=== PATIENT | female | born 1985 | race Caucasian/White ===

== ENCOUNTER 2017-09-02 10:22 | Observation (INO) | payer OTHER ==
[2017-09-02 15:21] VITALS: BP 125/77; PULSE 100
== END 2017-09-02 14:50 | disposition home or self-care (01) ==
LOC: OB 10:22
PROVIDERS: ADMIT Family Medicine; ATTEND Family Medicine
DX: Z34.83 Encounter for supervision of other normal pregnancy, third trimester (principal)
CPT/HCPCS: G0378

== ENCOUNTER 2017-09-18 04:52 | Inpatient (IN) | payer OTHER ==
[~2017-09-18 04:52] MED LIST: Ambien 10 MG PO PRN; Anucort-HC SUPPOSITORY PR PRN; BENADRYL 50 MG/ML IV PRN; BICITRA 30 ML CUP PO SCH; CLARITIN 10 MG PO PRN; CORTISONE 1% CREAM TP PRN; Dulcolax 10 MG SUPP PR PRN; HOLD NARCOTIC ANALGESICS AND SEDATIVES X24 HR MC PRN; LANSINOH 40 GM TOP PRN; Lactated Ringers 1,000 ML IV ONE; Mylicon 80MG PO PRN; Pepcid 20 MG VIAL IV SCH; Reglan 10 MG/2 ML IV SCH; Restoril 15 MG PO PRN; TUCKS TP PRN; TYLENOL EXTRA STRENGTH 500 MG PO PRN
[2017-09-18] MEDS ORDERED: Lactated Ringers 1,000 ML IV SCH (05:00)
[2017-09-18] MEDS ORDERED: CEFAZOLIN 2 GM-D5W BAG** 2 GM/50 ML ML IV SCH (05:00)
[2017-09-18 05:29] LABS: Hematocrit 35.9 % (35-47); Hemoglobin 12.3 gm/dl (12.0-16.0); Mean Cell Volume 92.8 fl (78-100); Mean Corpuscular Hgb Concent. 34.3 g/dl (32-36); Mean Platelet Volume 9.8 fl (6-9.5); Platelet Count 277 K/mm3 (150-450); Red Blood Count 3.87 M/mm3 (4.1-5.4); Red Cell Distribution Width 12.9 % (11.5-14.0); White Blood Count 12.2 K/mm3 (4.0-10.5)
[2017-09-18 05:41] LABS: INR 0.91 (0.8-3.0)
[2017-09-18 05:43] LABS: PTT 27.4 SECONDS (25.3-37.0)
[2017-09-18 05:45] LABS: Mean Corpuscular Hemoglobin 31.7 pg (26-32)
[2017-09-18 05:46] LABS: Amphetamine,Urine NEGATIVE (NEGATIVE); Barbiturate,Urine NEGATIVE (NEGATIVE); Benzodiazepine,Urine NEGATIVE (NEGATIVE); Cocaine,Urine NEGATIVE (NEGATIVE); Methadone,Urine NEGATIVE (NEGATIVE); Opiate,Urine NEGATIVE (NEGATIVE); PCP,Urine NEGATIVE (NEGATIVE); THC,Urine NEGATIVE (NEGATIVE)
[2017-09-18 06:15] LABS: ABO TYPING O; Antibody Screen NEGATIVE (NEGATIVE); RH TYPING POSITIVE
[2017-09-18] MEDS ORDERED: Nubain 10 MG/ML IV PRN (08:00)
[2017-09-18] MEDS ORDERED: DEMEROL 50 MG IV PRN (08:00)
[2017-09-18] MEDS ORDERED: Zofran 4 MG/2 ML VIAL IV PRN (08:00)
[2017-09-18] MEDS ORDERED: MORPHINE SULFATE 2 MG INJ IV PRN (08:00)
[2017-09-18] MEDS ORDERED: Narcan 0.4 MG/ML IV PRN (08:00)
[2017-09-18] MEDS ORDERED: PERCOCET TABLET 5/325MG PO PRN (08:00)
[2017-09-18] MEDS ORDERED: Adacel Vial IM ONE (09:00)
[2017-09-18 09:48] LABS: Appearance HAZY (CLEAR); Leukocyte Esterase TRACE (NEGATIVE); Nitrite NEGATIVE (NEGATIVE)
[2017-09-18 09:49] LABS: Appearance CLEAR (CLEAR); Bilirubin NEGATIVE (NEGATIVE); Blood NEGATIVE Ery/ul (0-5); Glucose NEGATIVE (NEGATIVE); Ketones NEGATIVE (NEGATIVE); Leukocyte Esterase NEGATIVE (NEGATIVE); Nitrite NEGATIVE (NEGATIVE); Protein,Urine Dip NEGATIVE (Negative); Urobilinogen NORMAL mg/dL (0-1)
[2017-09-18 09:49] LABS: Bacteria MODERATE /HPF (NEGATIVE); Bilirubin NEGATIVE (NEGATIVE); Blood 250 Ery/ul (0-5); Epithelial Cells MODERATE /HPF (FEW); Glucose NEGATIVE (NEGATIVE); Ketones NEGATIVE (NEGATIVE); Protein,Urine Dip 300 (Negative); RBC 50-100 /HPF (0-2); Urobilinogen NORMAL mg/dL (0-1)
[2017-09-18] MEDS ORDERED: TORAdol 30 mg Injection IV ONE (10:09)
[2017-09-18] MEDS ORDERED: Decadron 4 MG INJ IV ONE (10:09)
[2017-09-18] MEDS ORDERED: Naropin 0.5% 30 ML VIAL IJ ONE (10:09)
[2017-09-18] MEDS ORDERED: Pitocin 10 UNITS/ML IV ONE (10:09)
[2017-09-18] MEDS ORDERED: Zofran 4 MG/2 ML VIAL IV ONE (10:09)
[2017-09-18] MEDS: Dextrose 5%-Lr IV Solution 1000 ML 1,000 ML IV SCH ×2 (12:08→20:19)
--- NOTE | 2017-09-18 15:41 | OP ---
SURGERY DATE/TIME: 09/18/2017 0741 PREOPERATIVE DIAGNOSES: 1) Term intrauterine with history of prior section. 2) Desires permanent sterilization. POSTOPERATIVE DIAGNOSES: 1) Term intrauterine with history of prior section. 2) Desires permanent sterilization. PROCEDURES: 1) Repeat low transverse section. 2) Bilateral tubal ligation. SURGEON: Milton Snyder M.D. ESTIMATED BLOOD LOSS: 400 cc. IV FLUIDS: 1600 cc of crystalloid. URINE OUTPUT: 400 cc of clear straw-colored urine. ANESTHESIA: Spinal by Joao Freitas CRNA. SPECIMENS: Bilateral fallopian tube segments. DESCRIPTION OF PROCEDURE: After informed written consent was obtained, the patient was taken to the operating room. She was prepped and draped in the usual sterile fashion after she underwent spinal anesthesia. After adequate level of anesthesia was assessed and a low transverse skin incision was made by knife and carried through the subcutaneous fat to the level of the fascia. The fascia was nicked on both sides of the midline and extended in horizontal fashion using curved Delgadillo scissors. The superior free edge of the fascia was then grasped with Gisele clamps and the underlying rectus muscles were dissected free. The same was repeated inferiorly. The peritoneal cavity was then opened and bladder flap was created and reflected over the lower uterine segment. A horizontal uterine incision was made by knife and carried down to the level of amniotic membranes which were artificially ruptured. A viable female infant was delivered from the vertex presentation with a strong cry immediately upon delivery. Cord was clamped and cut and she was handed off to the awaiting nursery team. The placenta was removed from the uterine cavity and the uterus was exteriorized. The uterine cavity was sponge curetted clean with lap sponge. The uterine incision was closed with #1 chromic in a running locked fashion. Good closure and good hemostasis were achieved. Next, the left fallopian tube was identified and grasped with [place]. Cautery was used to make a window in the mesoappendix and proximal and distal tube segments were ligated with chromic tie. The interceding tube segment was dissected free with Metzenbaum scissors and the free edge of the tube was then cauterized with electrocautery. The same was repeated on the right side. Both tube segments were sent for pathology specimen. The posterior cul-de-sac was wiped free of blood and clot and the uterus was returned to peritoneal cavity. Lateral gutters were wiped free of blood and clot. Again, the uterine incision was inspected and noted to be hemostatic. Next, the fascia was closed with 0 Vicryl in a running fashion. Good closure and good hemostasis were achieved. Irrigation was used in the subcutaneous fat and any areas of bleeding were cauterized with electrocautery. The skin layer was closed with 4-0 undyed Vicryl in a running subcuticular fashion. Good closure and good hemostasis were achieved. Steri-Strips and occlusive dressing were placed over the incision. The patient transferred to the recovery room in excellent condition.
[2017-09-18] MEDS: Colace 100 MG PO SCH (23:32)
[2017-09-18] MEDS: MOTRIN 400 MG PO PRN (23:32)
[2017-09-19 05:52] LABS: Hematocrit 32.8 % (35-47); Hemoglobin 11.1 gm/dl (12.0-16.0); Mean Cell Volume 93.7 fl (78-100); Mean Corpuscular Hemoglobin 31.7 pg (26-32); Mean Corpuscular Hgb Concent. 33.8 g/dl (32-36); Mean Platelet Volume 10.3 fl (6-9.5); Platelet Count 294 K/mm3 (150-450); Red Cell Distribution Width 12.8 % (11.5-14.0); White Blood Count 18.1 K/mm3 (4.0-10.5)
[2017-09-19] MEDS ORDERED: Phenergan 25 MG INJ IM PRN (08:00)
[2017-09-19] MEDS ORDERED: DEMEROL 75 MG IM PRN (08:00)
[2017-09-19] MEDS: Colace 100 MG PO SCH ×3 (10:06→21:27)
[2017-09-19] MEDS: FERREX 150 PO SCH ×2 (10:06→21:25)
[2017-09-19] MEDS: NORCO 5/325 MG PO PRN ×3 (10:21→23:17)
[2017-09-19] MEDS: MOTRIN 400 MG PO PRN ×2 (10:22→18:02)
[2017-09-19 10:47] VITALS: O2SAT 98
[2017-09-20] MEDS: MOTRIN 400 MG PO PRN (02:44)
[2017-09-20] MEDS: NORCO 5/325 MG PO PRN (07:52)
--- NOTE | 2017-09-20 08:09 | PCM.DS ---
Discharge Summary Date of Admission: 09/18/17 04:52 Admitting Physician: NAZIA DOMINGUEZ Consults: Consults on Case 09/18/17 04:40 Notify Anesthesia Provider ROUTINE Notify Physician OF ADMISSION Primary Care Provider: NAZIA DOMINGUEZ Allergies Allergies No Known Drug Allergies Allergy (Verified 09/18/17 05:19) Hospital Summary - Hospital Course Hospital Course: had repeat c/s at 39 wks with BTL, unremarkable post-op course. no complications. pain well controlled, mild lochia. daughter and well bonded. - Vitals & Intake/Output Vital Signs: Vital Signs Temperature 98.0 F 09/20/17 04:10 Pulse Rate 78 09/20/17 04:10 Respiratory Rate 18 09/20/17 04:10 Blood Pressure 118/65 09/20/17 04:10 O2 Sat by Pulse Oximetry 98 09/19/17 10:00 Intake & Output: Intake & Output 09/17/17 09/18/17 09/19/17 09/20/17 11:59 11:59 11:59 11:59 Intake Total 1481 540 Output Total 2600 Balance -1119 540 Weight 89.358 kg - Lab Result Diagrams: 09/19/17 05:00 Micro Results-Entire Visit: Microbiology 09/18/17 07:58 Urine Culture - Final Urine, Catheterized NO GROWTH Discharge Exam General Appearance: no apparent distress, alert Skin Exam: normal color, warm, dry Respiratory Exam: normal breath sounds, lungs clear, No respiratory distress Cardiovascular Exam: regular rate/rhythm, normal heart sounds Gastrointestinal/Abdomen Exam: soft, other (incision c/d/i), No tenderness, No mass Extremity Exam: normal inspection, normal range of motion Final Diagnosis/Problem List - Final Discharge Diagnosis/Problem (1) delivery delivered Current Visit: Yes Status: Acute (2) Tubal ligation status Current Visit: Yes Status: Acute - Discharge Disposition: Home, Self-Care Condition: Stable Prescriptions: New Hydrocodone Bit/Acetaminophen [[place] 5-325 Tablet] 1 each PO Q6H PRN PRN #28 tablet MDD 4 PRN Reason: Pain Continue Vits W-Ca,Fe,FA(<1Mg) [] 1 each PO DAILY Follow up with: NAZIA DOMINGUEZ [Primary Care Provider] - 1 Week
[2017-09-20] MEDS ORDERED: Astramorph-Pf 5 MG/10 ML IV ONE (08:45)
[2017-09-20 09:37] VITALS: BP 129/68; PULSE 88
== END 2017-09-20 10:10 | disposition home or self-care (01) | DRG 766 ==
LOC: OB 04:52
PROVIDERS: ADMIT Family Medicine; ATTEND Family Medicine
PROC: 0UL70ZZ Occlusion of Bilateral Fallopian Tubes, Open Approach (ICD-10-PCS; principal; 2017-09-18)
PROC: 10D00Z1 Extraction of Products of Conception, Low, Open Approach (ICD-10-PCS; 2017-09-18)
DX: O34.211 Maternal care for low transverse scar from previous cesarean delivery (principal); Z37.0 Single live birth; Z3A.39 39 weeks gestation of pregnancy; Z30.2 Encounter for sterilization
CPT/HCPCS: 36000; 36415; 64488; 76937; 76942; 80307; 81000; 81002; 85027; 85610; 85730; 86850; 86900; 86901; 87086; 88302; 90715; 94799; 96372; J0690; J1100; J1885; J2274; J2405; J2590; J2795; A9270-GY

== ENCOUNTER 2019-04-22 20:32 | Emergency (ER) | payer OTHER ==
[2019-04-22] MEDS ORDERED: TORAdol 30 mg Injection IM ONE (21:07)
[2019-04-22] MEDS ORDERED: TORAdol 30 mg Injection ONE (21:10)
--- NOTE | 2019-04-22 21:10 | ERPHSYRPT ---
- History of Present Illness Time Seen by Provider: 04/22/19 20:50 Source: patient Exam Limitations: no limitations Patient Subjective Stated Complaint: Right ear / throat Triage Nursing Assessment: Alert and oriented X 3. States 3 or 4 days ago started having pain on right side of throat, worse when swallowing. Also complains of pain to right ear and headache for same amount of days. Physician History: Patient over the past three days has been having intermittent pain in the right ear radiating down her jaw. Patient has not had any recent trauma to her face, recent swimming, recent air travel or recent dental work. Patient has not been evaluated prior to coming into the emergency department. Timing/Duration: abrupt onset, days (3) Severity: severe ENT Location: ear (R), throat Prearrival Treatment: no prearrival treatment Modifying Factors: Worsens With: other (opening her mouth) Associated Symptoms: ear pain (R), jaw pain, sore throat, No denies symptoms, No ear pain (L), No cough, No fever, No chills, No change in hearing, No drooling, No ear drainage, No facial pain/swelling, No headache, No hearing loss , No malaise, No motion sickness, No nasal congestion/drainage, No epistaxis, No nasal foreign body, No neck pain, No poor fluid intake, No poor solids intake , No ringing of ears, No swollen glands, No sinus infection, No tooth pain, No difficulty swallowing, No voice change Allergies/Adverse Reactions: No Known Drug Allergies Allergy (Verified 04/22/19 20:50) Hx Tetanus, Diphtheria Vaccination/Date Given: Yes Hx Influenza Vaccination/Date Given: No Hx Pneumococcal Vaccination/Date Given: No Immunizations Up to Date: Yes - Review of Systems Constitutional: No Fever, No Chills Eyes: No Eye Pain, No Vision Changes Ears, Nose, & Throat: Ear Pain, Throat Pain, No Ear Discharge, No Tinnitus, No Nose Congestion, No Mouth Pain, No Mouth Swelling, No Throat Swelling, No Hoarse , No Painful Swallowing Respiratory: No Cough, No Dyspnea Cardiac: No Chest Pain, No Edema, No Syncope Abdominal/Gastrointestinal: No Abdominal Pain, No Nausea, No Vomiting, No Diarrhea Genitourinary Symptoms: No Dysuria, No Hematuria, No Flank Pain Musculoskeletal: No Back Pain, No Neck Pain Skin: No Rash Neurological: No Dizziness, No Focal Weakness, No Headache, No Parasthesia, No Sensory Changes Psychological: No Symptoms Endocrine: No Excessive Sweating Hematologic/Lymphatic: No Easy Bleeding, No Easy Bruising All Other Systems: Reviewed and Negative - Past Medical History Pertinent Past Medical History: Yes Neurological History: Migraines ENT History: No Pertinent History Cardiac History: No Pertinent History Respiratory History: No Pertinent History Endocrine Medical History: No Pertinent History Musculoskeletal History: Fractures GI Medical History: No Pertinent History History: No Pertinent History Psycho-Social History: No Pertinent History Female Reproductive Disorders: No Pertinent History Other Medical History: Cardiac Work Up due to Family History of Heart Problem. Fracture left ankle, fx tailbone - Past Surgical History Past Surgical History: Yes Neuro Surgical History: No Pertinent History Cardiac: No Pertinent History Respiratory: No Pertinent History Gastrointestinal: No Pertinent History Genitourinary: No Pertinent History Musculoskeletal: No Pertinent History Female Surgical History: Section - Social History Smoking Status: Current every day smoker How long have you smoked: 20 Exposure to second hand smoke: No Drug Use: none Patient Lives Alone: No - Female History Hx Last Menstrual Period: 1 week ago Hx Now: No - Nursing Vital Signs Nursing Vital Signs: Initial Vital Signs Temperature 98.2 F 04/22/19 20:38 Pulse Rate 79 04/22/19 20:38 Respiratory Rate 20 04/22/19 20:38 Blood Pressure 106/81 04/22/19 20:38 O2 Sat by Pulse Oximetry 99 04/22/19 20:38 Pain Scale Pain Intensity 4 - Physical Exam General Appearance: no apparent distress, alert Eye Exam: bilateral eye: normal inspection, PERRL, EOMI Ear Exam: bilateral ear: auricle normal, canal normal, TM normal, other (mild bilateral TMJ Subluxation) Nasal Exam: normal inspection Throat Exam: normal, pharynx normal, moist mucus membranes, No dental tenderness , No excessive drooling, No foreign body, No maxillary swelling, No pharynx swelling, No tonsillar exudate Neck Exam: normal inspection, non-tender, supple, trachea midline, No lymphadenopathy (R), No lymphadenopathy (L), No stiff neck Cardiovascular/Respiratory Exam: normal breath sounds, regular rate/rhythm, heart sounds normal, no JVD, no M/R/G, no respiratory distress Abdominal Exam: non-tender, soft Neurologic Exam: alert, oriented x 3, nursery rn II-XII nml as tested, normal mood/ affect, sensation nml, No motor deficits Skin Exam: normal color, warm, dry, No petechiae, No jaundice, No abrasion, No cyanosis, No laceration SpO2 Interpretation: normal SpO2: 99 O2 Delivery: Room Air - Course Nursing assessment & vital signs reviewed: Yes Ordered Tests: Medication Summary Discontinued Medications Generic Name Dose Route Start Last Admin Trade Name Freq PRN Reason Stop Dose Admin Ketorolac Tromethamine 60 mg 04/22/19 21:07 04/22/19 21:12 Toradol 30 Mg Injection IM 04/22/19 21:08 60 mg STAT ONE Administration Ketorolac Tromethamine Confirm 04/22/19 21:10 Toradol 30 Mg Injection Administered 04/22/19 21:11 Dose 60 mg .ROUTE .STK-MED ONE Lab/Rad Data: Laboratory Results 04/22/19 Range/Units 21:26 Group A Strep Antibody NEGATIVE (NEGATIVE) - Progress Progress: improved Progress Note: 04/22/19 22:03 Patient's pain has significantly improved after IM Toradol. Patient's symptoms are due to referred pain from the right TMJ. Patient's integument, ear, throat and nasal and sinus examinations were negative for any abnormalities that could be causing her symptoms. Patient is to followup with her dentist to continue evaluation of her symptoms, confirm diagnosis and discuss further treatment options such a bite block to wear at night. Counseled pt/family regarding: lab results, diagnosis, need for follow-up - Departure Departure Disposition: Home Clinical Impression: TMJ syndrome, Elevated blood pressure reading without diagnosis of hypertension Condition: Good Critical Care Time: No Referrals: NAZIA DOMINGUEZ [Primary Care Provider] - 04/24/19 Instructions: Temporomandibular Joint (TMJ) Disorders (DC) Additional Instructions: Discuss with your doctor or dentist about if your symptoms are coming from your TMJ and discuss treatment options. Return back to the emergency department if any worse pain, new fever, new rash, new headache or any other concerning signs or symptoms that were not present at today's emergency department visit for immediate reevaluation in the emergency department. Prescriptions: Etodolac 400 mg [Lodine 400 mg] 400 mg PO BID PRN PRN #20 tablet PRN Reason: Pain
[2019-04-22 22:17] VITALS: BP 110/77; PULSE 80; O2SAT 96
== END 2019-04-22 22:17 | disposition home or self-care (01) ==
LOC: ED 20:32
DX: M26.601 Right temporomandibular joint disorder, unspecified (principal); R03.0 Elevated blood-pressure reading, without diagnosis of hypertension; H92.01 Otalgia, right ear
CPT/HCPCS: 87651; 96372; 99284; J1885

== ENCOUNTER 2019-11-03 19:28 | Emergency (ER) | payer OTHER ==
[2019-11-03] MEDS ORDERED: Sodium Chloride 0.9% 1000 ML 1,000 ML ONE (19:40)
[2019-11-03] MEDS: Sodium Chloride 0.9% 1000 ML 1,000 ML IV STA (19:43)
[2019-11-03 20:11] LABS: Absolute Neutrophil Ct (ANC) 10.81 (1.4-6.9); BASOPHIL % 0.1 % (0.0-0.4); Basophil (Absolute #) 0.02 (0-0.4); Eosinophil (Absolute #) 0.15 (0-0.5); Hematocrit 39.3 % (35-47); Hemoglobin 12.9 gm/dl (12.0-16.0); Lymphocyte (Absolute #) 3.15 (1.0-4.6); Lymphocytes % 20.3 % (24.0-44.0); Mean Corpuscular Hemoglobin 30.9 pg (26-32); Mean Corpuscular Hgb Concent. 32.8 g/dl (32-36); Mean Platelet Volume 9.7 fl (7.5-11.0); Neutrophil % 69.6 % (36.0-66.0); Platelet Count 271 K/mm3 (150-450); Red Blood Count 4.18 M/mm3 (4.1-5.4); White Blood Count 15.5 K/mm3 (4.0-10.5)
[2019-11-03 20:16] LABS: ALBUMIN 4.2 g/dL (3.5-5.0); ALKALINE PHOSPHATASE 67 U/L (38-126); ANION GAP 9.3 MEQ/L (5-15); BLOOD UREA NITROGEN 9 mg/dL (7-17); CHLORIDE 107 mmol/L (98-107); Calcium 9.2 mg/dL (8.4-10.2); Carbon Dioxide 28 mmol/L (22-30); Creatinine 1 0.81 mg/dL (0.52-1.04); Glucose 99 mg/dL (74-106); MAGNESIUM 1.9 mg/dL (1.6-2.3); Potassium 3.8 mmol/L (3.5-5.1); SGOT/AST 25 U/L (14-36); SGPT/ALT 17 U/L (0-35); SODIUM 140 mmol/L (137-145); Total Protein 7.3 g/dL (6.3-8.2)
[2019-11-03 20:50] LABS: Appearance SLIGHTLY CLOUDY (CLEAR); Bilirubin NEGATIVE (NEGATIVE); Blood NEGATIVE Ery/ul (0-5); Epithelial Cells RARE /HPF (FEW); Glucose NEGATIVE (NEGATIVE); Ketones NEGATIVE (NEGATIVE); Leukocyte Esterase NEGATIVE (NEGATIVE); Mucus SLIGHT /HPF (NEGATIVE); Nitrite NEGATIVE (NEGATIVE); Protein,Urine Dip NEGATIVE (Negative); Specific Gravity 1.009 (1.005-1.025); Urobilinogen NEGATIVE mg/dL (0-1)
[2019-11-03] MEDS ORDERED: TORAdol 30 mg Injection ONE (20:52)
[2019-11-03] MEDS: TORAdol 30 mg Injection IV ONE (20:54)
--- NOTE | 2019-11-03 21:15 | ERPHSYRPT ---
- History of Present Illness Time Seen by Provider: 11/03/19 19:35 Source: patient, EMS Exam Limitations: no limitations Patient Subjective Stated Complaint: per ems pt passed out at home in the bathroom. pt states she wasnt feeling well and and went into the bathroom. sta saranya she felt like she was going to pass out so she laid down on the floor. told ems that she had seizure like acitivity. pt was awake, alert and and oriented when ems arrived to home. Triage Nursing Assessment: pt alert and oriented, answers questions approp. pt tearful at times and anxious. pt arrive per ambulance and tranfers to stretcher per self.respirations nonlabored with lungs cta. abd soft and nontender. skin pink warm and dry. pupils equal and reactive. bilat upper and lower ext strength equal and wnl. Physician History: 34 years old female with history of migraine with aura, tooth extraction done today is brought in the ER with chief complaint of syncopal episode. Patient reports she was hurting really bad, went to the bathroom and feel dizzy/lightheaded, as if she was going to pass out. She probably will lay down on the floor and woke up with her standing on the side who told that she probably have a seizure-like activity. She did not bite her tongue, no loss of bowel or bladder control. Denies any history of seizures before. She was not confused upon waking up. She denies any focal numbness tingling or weakness. Denies any headache. Patient reports having similar symptoms in the past with migraines. She denies any visual symptoms marked difficulty speech. Denies any chest pain palpitations or shortness of breath before or after the episode. Denies any fever or chills. Timing/Duration: today, resolved prior to arrival, sudden, improved Severity: moderate Modifying Factors: Improves With: nothing Associated Symptoms: denies symptoms, syncope Allergies/Adverse Reactions: No Known Drug Allergies Allergy (Verified 11/03/19 19:53) Hx Tetanus, Diphtheria Vaccination/Date Given: Yes Hx Influenza Vaccination/Date Given: No Hx Pneumococcal Vaccination/Date Given: No Immunizations Up to Date: Yes Travel Risk - International Travel Have you traveled outside of the country in past 3 weeks: No - Coronavirus Screening Close contact with a COVID-19 positive Pt in past 14-21 Days: No - Review of Systems Constitutional: Weakness Eyes: No Symptoms Ears, Nose, & Throat: Mouth Swelling Respiratory: No Symptoms Cardiac: No Symptoms Abdominal/Gastrointestinal: No Symptoms Genitourinary Symptoms: No Symptoms Musculoskeletal: No Symptoms Skin: No Symptoms Psychological: No Symptoms Endocrine: No Symptoms Hematologic/Lymphatic: No Symptoms Immunological/Allergic: No Symptoms - Past Medical History Pertinent Past Medical History: Yes Neurological History: Migraines ENT History: No Pertinent History Cardiac History: No Pertinent History Respiratory History: No Pertinent History Endocrine Medical History: No Pertinent History Musculoskeletal History: Fractures GI Medical History: No Pertinent History History: No Pertinent History Psycho-Social History: No Pertinent History Female Reproductive Disorders: No Pertinent History Other Medical History: Cardiac Work Up due to Family History of Heart Problem. Fracture left ankle, fx tailbone. hx of syncope with workup done- possible aura before migraine - Past Surgical History Past Surgical History: Yes Neuro Surgical History: No Pertinent History Cardiac: No Pertinent History Respiratory: No Pertinent History Gastrointestinal: No Pertinent History Genitourinary: No Pertinent History Musculoskeletal: No Pertinent History Female Surgical History: Section - Social History Smoking Status: Current every day smoker How long have you smoked: 20 Exposure to second hand smoke: No Drug Use: none Patient Lives Alone: No - Female History Hx Now: (unkn) - Nursing Vital Signs Nursing Vital Signs: Initial Vital Signs Temperature 98.1 F 11/03/19 19:31 Pulse Rate 81 11/03/19 19:31 Respiratory Rate 20 11/03/19 19:31 Blood Pressure 157/100 11/03/19 19:31 O2 Sat by Pulse Oximetry 99 11/03/19 19:31 Pain Scale Pain Intensity 5 - Physical Exam General Appearance: no apparent distress, alert, anxiety Eye Exam: PERRL/EOMI, eyes nml inspection Ears, Nose, Throat Exam: normal ENT inspection, TMs normal, pharynx normal Neck Exam: normal inspection, non-tender, supple, full range of motion Respiratory Exam: normal breath sounds, lungs clear Cardiovascular Exam: regular rate/rhythm, normal heart sounds Gastrointestinal/Abdomen Exam: soft, normal bowel sounds, No tenderness Back Exam: normal inspection, normal range of motion Extremity Exam: normal inspection, normal range of motion, pelvis stable Neurologic Exam: alert, oriented x 3, cooperative, printing roller polisher II-XII nml as tested, normal mood/affect, nml cerebellar function, nml station & gait, sensation nml Skin Exam: normal color, warm SpO2 Interpretation: normal SpO2: 98 O2 Delivery: Room Air - Course EKG Interpreted by Me: RATE ([id number]), Sinus Rhythm, NORMAL AXIS, NORMAL INTERVALS, NORMAL QRS Ordered Tests: Active Orders 24 hr Category Date Time Status Window Glazier STAT Care 11/03/19 19:33 Active EKG-ER Only STAT Care 11/03/19 19:32 Active IV Insertion STAT Care 11/03/19 19:32 Active Orthostatic Vital Signs STAT Care 11/03/19 19:32 Active CHEST 1 VIEW (PORTABLE) Stat Exams 11/03/19 21:09 Taken HEAD WITHOUT CONTRAST [CT] Stat Exams 11/03/19 19:33 Taken CBC W DIFF Stat Lab 11/03/19 20:00 Completed CMP Stat Lab 11/03/19 20:00 Completed HCG,QUALITATIVE URINE Stat Lab 11/03/19 20:45 Completed MAGNESIUM Stat Lab 11/03/19 20:00 Completed TROPONIN Q3H Lab 11/03/19 20:00 Completed TROPONIN Q3H Lab 11/03/19 22:45 Ordered TROPONIN Q3H Lab 11/04/19 01:45 Ordered TROPONIN Q3H Lab 11/04/19 04:45 Ordered TROPONIN Q3H Lab 11/04/19 07:45 Ordered UA W/RFX UR CULTURE Stat Lab 11/03/19 20:45 Completed Medication Summary Discontinued Medications Generic Name Dose Route Start Last Admin Trade Name Freq PRN Reason Stop Dose Admin Sodium Chloride 1,000 mls @ 999 mls/hr 11/03/19 19:32 11/03/19 21:23 Sodium Chloride 0.9% 1000 Ml IV 11/03/19 20:32 Infused .Q1H1M STA Infusion Sodium Chloride Confirm 11/03/19 19:40 Sodium Chloride 0.9% 1000 Ml Administered 11/03/19 19:41 Dose 1,000 mls @ ud .ROUTE .STK-MED ONE Levetiracetam 1,000 mg/ 110 mls @ 220 mls/hr 11/03/19 21:33 11/03/19 21:42 Dextrose IV 11/03/19 22:02 220 mls/hr STAT ONE Administration Dextrose Confirm 11/03/19 21:38 D5w 100ml Mini Bag 100 Ml Administered 11/03/19 21:39 Dose 100 mls @ ud IV .STK-MED ONE Ketorolac Tromethamine 30 mg 11/03/19 20:41 11/03/19 20:54 Toradol 30 Mg Injection IV 11/03/19 20:42 30 mg STAT ONE Administration Ketorolac Tromethamine Confirm 11/03/19 20:52 Toradol 30 Mg Injection Administered 11/03/19 20:53 Dose 30 mg .ROUTE .[facility] ONE Levetiracetam Confirm 11/03/19 21:37 Keppra 500 Mg/5 Ml Administered 11/03/19 21:38 Dose 500 mg .ROUTE .[facility] ONE Lab/Rad Data: Laboratory Result Diagrams 11/03/19 20:00 11/03/19 20:00 Laboratory Results 11/03/19 11/03/19 11/03/19 Range/Units 20:45 20:45 20:00 WBC (4.0-10.5) K/mm3 RBC (4.1-5.4) M/mm3 Hgb (12.0-16.0) gm/dl Hct (35-47) % MCV (78-100) fl MCH (26-32) pg MCHC (32-36) g/dl RDW (11.5-14.0) % Plt Count (150-450) K/mm3 MPV (7.5-11.0) fl Gran % (36.0-66.0) % Eos # (Auto) (0-0.5) Absolute Lymphs (auto) (1.0-4.6) Absolute Monos (auto) (0.0-1.3) Lymphocytes % (24.0-44.0) % Monocytes % (0.0-12.0) % Eosinophils % (0.00-5.0) % Basophils % (0.0-0.4) % Absolute Granulocytes (1.4-6.9) Basophils # (0-0.4) Sodium (137-145) mmol/L Potassium (3.5-5.1) mmol/L Chloride (98-107) mmol/L Carbon Dioxide (22-30) mmol/L Anion Gap (5-15) MEQ/L BUN (7-17) mg/dL Creatinine (0.52-1.04) mg/dL Estimated GFR ML/MIN Glucose (74-106) mg/dL Calcium (8.4-10.2) mg/dL Magnesium (1.6-2.3) mg/dL Total Bilirubin (0.2-1.3) mg/dL AST (14-36) U/L ALT (0-35) U/L Alkaline Phosphatase (38-126) U/L Troponin I < 0.012 (0.000-0.034) ng/mL Serum Total Protein (6.3-8.2) g/dL Albumin (3.5-5.0) g/dL Urine Color YELLOW (YELLOW) Urine Appearance SLIGHTLY CLOUDY (CLEAR) Urine pH 5.0 (5-6) Ur Specific [place] 1.009 (1.005-1.025) Urine Protein NEGATIVE (Negative) Urine Ketones NEGATIVE (NEGATIVE) Urine Blood NEGATIVE (0-5) Rahul/ul Urine Nitrite NEGATIVE (NEGATIVE) Urine Bilirubin NEGATIVE (NEGATIVE) Urine Urobilinogen NEGATIVE (0-1) mg/dL Ur Leukocyte Esterase NEGATIVE (NEGATIVE) Urine WBC (Auto) 3-5 (0-5) /HPF Urine RBC (Auto) NONE (0-2) /HPF U Epithel Cells (Auto) RARE (FEW) /HPF Urine Bacteria (Auto) NONE (NEGATIVE) /HPF Urine Mucus (Auto) SLIGHT (NEGATIVE) /HPF Urine Culture Reflexed NO (NO) Urine Glucose NEGATIVE (NEGATIVE) mg/dL Urine HCG, Qual NEGATIVE (Negative) 11/03/19 11/03/19 Range/Units 20:00 20:00 WBC 15.5 H (4.0-10.5) K/mm3 RBC 4.18 (4.1-5.4) M/mm3 Hgb 12.9 (12.0-16.0) gm/dl Hct 39.3 (35-47) % MCV 94.0 (78-100) fl MCH 30.9 (26-32) pg MCHC 32.8 (32-36) g/dl RDW 13.0 (11.5-14.0) % Plt Count 271 (150-450) K/mm3 MPV 9.7 (7.5-11.0) fl Gran % 69.6 H (36.0-66.0) % Eos # (Auto) 0.15 (0-0.5) Absolute Lymphs (auto) 3.15 (1.0-4.6) Absolute Monos (auto) 1.40 H (0.0-1.3) Lymphocytes % 20.3 L (24.0-44.0) % Monocytes % 9.0 (0.0-12.0) % Eosinophils % 1.0 (0.00-5.0) % Basophils % 0.1 (0.0-0.4) % Absolute Granulocytes 10.81 H (1.4-6.9) Basophils # 0.02 (0-0.4) Sodium 140 (137-145) mmol/L Potassium 3.8 (3.5-5.1) mmol/L Chloride 107 (98-107) mmol/L Carbon Dioxide 28 (22-30) mmol/L Anion Gap 9.3 (5-15) MEQ/L BUN 9 (7-17) mg/dL Creatinine 0.81 (0.52-1.04) mg/dL Estimated GFR > 60.0 ML/MIN Glucose 99 (74-106) mg/dL Calcium 9.2 (8.4-10.2) mg/dL Magnesium 1.9 (1.6-2.3) mg/dL Total Bilirubin 0.60 (0.2-1.3) mg/dL AST 25 (14-36) U/L ALT 17 (0-35) U/L Alkaline Phosphatase 67 (38-126) U/L Troponin I (0.000-0.034) ng/mL Serum Total Protein 7.3 (6.3-8.2) g/dL Albumin 4.2 (3.5-5.0) g/dL Urine Color (YELLOW) Urine Appearance (CLEAR) Urine pH (5-6) Ur Specific [place] (1.005-1.025) Urine Protein (Negative) Urine Ketones (NEGATIVE) Urine Blood (0-5) Rahul/ul Urine Nitrite (NEGATIVE) Urine Bilirubin (NEGATIVE) Urine Urobilinogen (0-1) mg/dL Ur Leukocyte Esterase (NEGATIVE) Urine WBC (Auto) (0-5) /HPF Urine RBC (Auto) (0-2) /HPF U Epithel Cells (Auto) (FEW) /HPF Urine Bacteria (Auto) (NEGATIVE) /HPF Urine Mucus (Auto) (NEGATIVE) /HPF Urine Culture Reflexed (NO) Urine Glucose (NEGATIVE) mg/dL Urine HCG, Qual (Negative) - Progress Progress: improved Progress Note: 11/03/19 22:15 34 years old is evaluated for syncopal episode. She has a nonfocal neuro exam. I have obtained CT head which is negative for any acute intracranial findings. She has leukocytosis but no obvious focus of infection. Work-up otherwise is grossly unremarkable. Later on showed up in the ER stating that patient was having shaking episode with foaming in the mouth pointing towards seizure- like activity. Although patient was oriented on image and waking up with no postictal phase. I have given her dose of Keppra. I have obtained [facility] tele neurology consult who recommended outpatient neurology follow-up as he does not seem convinced that patient was actually having a seizure episode. Did not recommended starting on antiepileptic. Recommending avoiding driving until has been evaluated by outpatient neurology and EEG done and cleared for driving. Patient neuro exam is nonfocal throughout stay in the ER. At this point I do not think patient needs any further work-up per needs to come in the hospital and is stable for discharge. Plan discussed with patient in detail who understand and agrees with it. Counseled pt/family regarding: lab results, diagnosis, need for follow-up, rad results - Departure Departure Disposition: Home Clinical Impression: Syncope and collapse Leukocytosis Qualifiers: Leukocytosis type: unspecified Qualified Code(s): D72.829 - Elevated white blood cell count, unspecified Condition: Stable Critical Care Time: No Referrals: NAZIA DOMINGUEZ [Primary Care Provider] - (1-2 days for re evaluation) FEDERICA ROBERTS [NON-STAFF PHY W/O PRIVILEGES] - (call tomorrow for appointment) Instructions: Seizures, Adult (DC), Syncope (Fainting) (DC) Additional Instructions: Do not drive until evaluated and cleared by neurology. Follow-up with primary care and neurology for further evaluation. Drink plenty of fluids. Return to ER for any worsening.
[2019-11-03] MEDS ORDERED: Keppra 500 MG/5 ML ONE (21:37)
[2019-11-03] MEDS ORDERED: D5w 100ML Mini Bag 100 ML 100 ML IV ONE (21:38)
[2019-11-03] MEDS: Keppra 500 MG/5 ML*** 1,000 MG in D5w 100ML Mini Bag 100 ML 100 ML IV ONE (21:42)
[2019-11-03 22:15] VITALS: O2SAT 98
[2019-11-03 22:22] VITALS: BP 137/93
[2019-11-03 22:26] VITALS: PULSE 79
--- NOTE | 2019-11-04 08:33 | XRAY ---
Indication: Syncope. Seizure. Comparison: None Portable chest demonstrates normal heart, lungs, and bony thorax with a few incidental calcified granulomas.
--- NOTE | 2019-11-04 08:35 | XRAY ---
Indication: Seizure. Multiple contiguous axial images obtained through the head without contrast. Comparison: None Normal appearing brain parenchyma, ventricles, and bony calvarium. Partially visualized 2.9 cm right maxillary sinus polyp/retention cyst. Partial opacification right mastoid air cells presumed inflammatory. Impression: 1. No acute intracranial abnormalities. 2. Right maxillary sinus polyp/retention cyst. 3. Partial opacification right mastoid air cells presumed inflammatory.
== END 2019-11-03 22:30 | disposition home or self-care (01) ==
LOC: ED 19:28
DX: R55 Syncope and collapse (principal)
CPT/HCPCS: 36000; 36415; 70450; 71045; 80053; 81001; 83735; 84484; 84703; 85025; 93005; 93041; 96360; 96374; 99285; J1885; J1953; Q3014

== ENCOUNTER 2020-04-01 14:24 | Emergency (ER) | payer OTHER ==
--- NOTE | 2020-04-01 14:27 | ERPHSYRPT ---
- History of Present Illness Time Seen by Provider: 04/01/20 14:27 Source: patient Exam Limitations: no limitations Physician History: This is a 34-year-old white female who presents with left foot pain. The point of maximal tenderness is digits 1 and 2 of her left foot. Yesterday, a heavy can of yams fell onto her left foot. There was pain, swelling and today bruising. She is concerned because the first and second toes feel odd when ambulating. No other areas of injury are present. Method of Injury: other (Injury from an object) Occurred: yesterday Quality: constant, aching, throbbing Severity of Pain-Max: moderate Severity of Pain-Current: moderate Lower Extremities Pain: 1st toe: left, 2nd toe: left Modifying Factors: Improves With: movement Associated Symptoms: other (First and second toes of the left foot hurt when ambulating) Allergies/Adverse Reactions: No Known Drug Allergies Allergy (Verified 04/01/20 14:33) Hx Tetanus, Diphtheria Vaccination/Date Given: Yes Hx Influenza Vaccination/Date Given: No Hx Pneumococcal Vaccination/Date Given: No Travel Risk - International Travel Have you traveled outside of the country in past 3 weeks: No - Coronavirus Screening Are you exhibiting any of the following symptoms?: No Close contact with a COVID-19 positive Pt in past 14-21 Days: No - Review of Systems Constitutional: No Symptoms Eyes: No Symptoms Ears, Nose, & Throat: No Symptoms Respiratory: No Symptoms Cardiac: No Symptoms Abdominal/Gastrointestinal: No Symptoms Genitourinary Symptoms: No Symptoms Musculoskeletal: Injury (Left foot) Skin: No Symptoms Neurological: No Symptoms Psychological: No Symptoms Endocrine: No Symptoms Hematologic/Lymphatic: No Symptoms Immunological/Allergic: No Symptoms All Other Systems: Reviewed and Negative - Past Medical History Pertinent Past Medical History: Yes Neurological History: Migraines ENT History: No Pertinent History Cardiac History: No Pertinent History Respiratory History: No Pertinent History Endocrine Medical History: No Pertinent History Musculoskeletal History: Fractures GI Medical History: No Pertinent History History: No Pertinent History Psycho-Social History: No Pertinent History Female Reproductive Disorders: No Pertinent History Other Medical History: Cardiac Work Up due to Family History of Heart Problem. Fracture left ankle, fx tailbone. hx of syncope with workup done- possible aura before migraine - Past Surgical History Past Surgical History: Yes Neuro Surgical History: No Pertinent History Cardiac: No Pertinent History Respiratory: No Pertinent History Gastrointestinal: No Pertinent History Genitourinary: No Pertinent History Musculoskeletal: No Pertinent History Female Surgical History: Section - Social History Smoking Status: Current every day smoker How long have you smoked: 20 Exposure to second hand smoke: No Drug Use: none Patient Lives Alone: No - Nursing Vital Signs Nursing Vital Signs: Initial Vital Signs Temperature 98.0 F 04/01/20 14:33 Pulse Rate 93 H 04/01/20 14:33 Respiratory Rate 18 04/01/20 14:33 Blood Pressure 145/96 04/01/20 14:33 O2 Sat by Pulse Oximetry 97 04/01/20 14:33 Pain Scale Pain Intensity 4 - Physical Exam General Appearance: mild distress, alert, anxiety Eyes, Ears, Nose, Throat Exam: normal ENT inspection, moist mucous membranes Neck Exam: normal inspection, non-tender, supple, full range of motion Cardiovascular/Respiratory Exam: chest non-tender, no respiratory distress Gastrointestinal/Abdominal Exam: non-tender Back Exam: normal inspection, normal range of motion, No CVA tenderness, No vertebral tenderness Hips Exam: bilateral: non-tender, normal inspection, normal range of motion, no evidence of injury Legs Exam: bilateral leg: non-tender, normal inspection, normal range of motion, no evidence of injury Knees Exam: bilateral knee: non-tender, normal inspection, normal range of motion, no evidence of injury Ankle Exam: bilateral ankle: non-tender, normal inspection, normal range of motion, no evidence of injury Foot Exam: right foot: non-tender, normal inspection, normal range of motion, no evidence of injury, left foot: bone tenderness, ecchymosis, limited range of motion, soft tissue tenderness, swelling, other (All left foot symptoms as stated are found on digits 1 and 2 of her left foot) Neuro/Tendon Exam: normal sensation, normal motor functions, normal tendon functions, responds to pain Mental Status Exam: alert, oriented x 3, cooperative Skin Exam: normal color, warm, dry SpO2 Interpretation: normal O2 Delivery: Room Air - Course Nursing assessment & vital signs reviewed: Yes Ordered Tests: Active Orders 24 hr Category Date Time Status FOOT (MINIMUM 3 VIEWS) Stat Exams 04/01/20 14:36 Taken - Progress Progress: unchanged, pain not gone completely Progress Note: 04/01/20 15:00 X-ray of the left foot reveals no evidence of any acute fracture or dislocation. Counseled pt/family regarding: diagnosis, need for follow-up, rad results - Departure Departure Disposition: Home Clinical Impression: Contusion of left foot including toes Condition: Stable Critical Care Time: No Referrals: NAZIA PARR [Primary Care Provider] - Additional Instructions: Soak left foot in an ice bath 3 times a day for the next 48 hours. Add ibuprofen 600 mg with food orally 3 times a day for the next 5 days. Follow-up with Dr. Rodriguez, podiatry clinic at [facility] on Saturday04/04/2020 or your primary care physician if your symptoms persist. Prescriptions: Hydrocodone/APAP 5-325 Tab^^^ [[place] 5-325 Tablet^^^] 1 tab PO Q8H PRN PRN #6 tablet MDD 3 PRN Reason: Pain
[2020-04-01 14:42] VITALS: BP 145/96; PULSE 93; O2SAT 97
--- NOTE | 2020-04-01 19:15 | XRAY ---
Indication: Pain, swelling, and bruising following injury. Comparison: None 3 nonweightbearing views left foot demonstrates tiny 1st metatarsal head and plantar heel spurs. No other bony, articular, or soft tissue abnormalities.
== END 2020-04-01 15:25 | disposition home or self-care (01) ==
LOC: ED 14:24
DX: S90.32XA Contusion of left foot, initial encounter (principal); W22.8XXA Striking against or struck by other objects, initial encounter; Y93.89 Activity, other specified; Y92.89 Other specified places as the place of occurrence of the external cause; M79.672 Pain in left foot
CPT/HCPCS: 73630; 99283